=== PATIENT | male | born 1985 | race Caucasian/White ===

== ENCOUNTER 2020-04-22 11:24 | Outpatient (CLI) | payer OTHER, SELFPAY ==
--- NOTE | ~2020-04-22 | XR_ITS ---
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 T here is mild periarticular spurring of the patella consistent with osteoarthritis. No fracture or dislocation or joint effusion is evident. No periosteal reaction or bone destruction. No radiopaque intra-articular loose body or chondrocalcinosis. IMPRESSION: No fracture or dislocation or joint effusion Reviewed, dictated and finalized at location B. 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
== END 2020-04-22 11:25 | disposition home or self-care (01) ==
LOC: CHSIMG 11:26
PROVIDERS: PCP Nurse Practitioner Family; Visit Provider Nurse Practitioner Family
DX: M25.562 Pain in left knee (principal)
CPT/HCPCS: 73562

== ENCOUNTER 2021-02-16 12:48 | Outpatient (CLI) | payer OTHER, SELFPAY ==
[2021-02-16 14:07] LABS: SARS-CoV-2 RNA PCR Positive (Negative)
== END 2021-02-16 12:49 | disposition home or self-care (01) ==
PROVIDERS: PCP Nurse Practitioner Family; Visit Provider Nurse Practitioner Family
DX: U07.1 COVID-19 (principal)
CPT/HCPCS: C9803; U0003; U0005

== ENCOUNTER 2021-02-17 09:17 | Outpatient (CLI) | payer OTHER, SELFPAY ==
[2021-02-17 09:55] VITALS: BP 154/86; PULSE 97; RESP 16; TEMP 37.7; O2SAT 93
[2021-02-17] MEDS: diphenhydrAMINE HCl CAP 25 MG CAPSULE PO (10:02)
[2021-02-17] MEDS: FAMOTIDINE 20 MG TABLET PO (10:02)
[2021-02-17] MEDS: ACETAMINOPHEN 325 MG TABLET 650 MG PO (10:03)
--- NOTE | 2021-02-17 11:50 | PC.NURSE ---
Patient here to receive monoclonal antibody infusion. Patient tolerated well. Shows no signs/symptoms of adverse reactions. IV site removed, tip intact. Dressing applied to site. Patient denies any questions at discharge. Accompanied to front door by this nurse, patient left ambulatory.
== END 2021-02-17 09:18 | disposition home or self-care (01) ==
LOC: CHSTREATRM 09:19
PROVIDERS: PCP Nurse Practitioner Family; Visit Provider Nurse Practitioner Family
DX: Z23 Encounter for immunization (principal); U07.1 COVID-19
CPT/HCPCS: 96365; A9270; M0245; Q0245

== ENCOUNTER 2021-02-23 11:59 | Outpatient (CLI) | payer OTHER, SELFPAY ==
--- NOTE | ~2021-02-23 | XR_ITS ---
EXAMINATION: XR chest 2V 02/23/2021 12:28 INDICATION: Covid19. Shortness of breath. PROCEDURE: 2 view chest COMPARISON: 02/12/2015 FINDINGS: The lungs are clear. The cardiomediastinal silhouette is within normal limits. There are no pleural effusions. There is no pneumothorax suspected. IMPRESSION: 1: NO ACUTE CARDIOPULMONARY DISEASE. Reviewed, dictated and finalized at location A. CHECK ATTENDANT
== END 2021-02-23 12:00 | disposition home or self-care (01) ==
LOC: CHSIMG 12:01
PROVIDERS: PCP Nurse Practitioner Family; Visit Provider Nurse Practitioner Family
DX: U07.1 COVID-19 (principal)
CPT/HCPCS: 71046

== ENCOUNTER 2021-05-24 13:00 | Emergency (ER) | payer OTHER, SELFPAY ==
--- NOTE | ~2021-05-24 | XR_ITS ---
XR knee LT 3V 05/24/2021 13:42 Indication: Left knee pain after fall Procedure: 5 views left knee Comparison: Comparison to multiple prior studies sequentially, with oldest reviewed study dated 10/30. Findings: No acute fracture, subluxation or dislocation. There is an unfused tibial apophysis. Mild p atellofemoral compartment osteoarthritis. No joint effusion. No foreign bodies. Impression: 1: No acute fracture. Reviewed, dictated and finalized at location A. COLLECTOR Impression: 1: No acute fracture.
[2021-05-24 13:00] VITALS: BP 107/91; PULSE 106; RESP 16; TEMP 36.8; O2SAT 95
--- NOTE | 2021-05-24 13:12 | ED.LOWEXIN ---
HPI - Extremity Injury (Lower) General Chief Complaint: Extremity Injury, Lower Stated Complaint: fell down stairs, L knee pain Source: patient and RN notes reviewed Mode of arrival: ambulatory Limitations: no limitations History of Present Illness HPI Narrative: Patient was cleaning up the stairs when he slipped and his knee ended up hitting the ground and his foot was bad back with an inversion injury. complaint: knee injury Onset (ago): hour(s) (2) Injury: Left: knee Type of Injury: inversion Place: home Severity: moderate Relieving factors: nothing Exacerbating factors: weight bearing and movement Context: fall Associated symptoms: ambulatory Other symptoms: none Related Data Allergies Allergy/AdvReac Type Severity Reaction Status Date / Time No Known Allergies Allergy Verified 05/24/21 13:23 Review of Systems Review of Systems: All systems reviewed & are unremarkable except as noted in HPI and below PMFSH Past Medical History Medical History Cigarette smoker (03/08/16) HTN (hypertension) (06/28/17) SARS-CoV-2 positive Surgical History Surgical History H/O left knee surgery Social History Social History Smoking packs per day: 0.75 Smoking cigarettes per day: 15.0 Years smoked: 15 Smoking pack-years: 11.25 Smoking status: Current every day smoker Alcohol intake: current Alcohol use details: social Substance use: never Substance use type: does not use Additional living arrangements comments: 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 Exam Const: General: healthy appearing, no acute distress and alert Nutritional Appearance: well nourished and obese centrally obese Orientation/consciousness: patient oriented x3 HENMT: Head: normal to inspection Ears: external ears normal Eyes: Conjunctivae: conjunctivae normal Pupils: Equal, round and reactive pupils present EOM: EOMs intact bilaterally Neck: Neck: normal visual inspection Resp: Effort & Inspection: normal respiratory effort Auscultation: clear to auscultation bilaterally Cardio: Rate: regular rate Rhythm: regular rhythm GI: GI Palp: Yes Soft to palpation and No Tenderness to palpation present (GI) Auscultation: normal bowel sounds Back/Spine/Pelvis: Cervical Spine: cervical ROM normal Thoracic/Lumbar Spine: thoraco-lumbar ROM normal Skin: General skin exam: normal color Rashes: no rashes Neuro: General: patient oriented x3, moves all extremities, no focal motor deficits and CN's II-XI intact bilaterally Speech: normal speech Extrem: General: normal exam except as noted and no clubbing, cyanosis or edema Left lower extremity: knee Details: tenderness Location: of the patella Details: superiorly, of the medial joint line and of the lateral joint line, normal ROM and knee ligament exam normal Details: anterior drawer test normal, valgus stress test normal, varus stress test normal and Jacinta's test normal Psych: Appearance: grossly normal and well kempt Mental Status: mental status grossly normal Affect: normal affect Attitude: cooperative Thought content: Yes Normal thought content present Course Vital Signs Vital signs: Vital Signs Temperature 36.8 C 05/24/21 13:00 Pulse Rate 106 H 05/24/21 13:00 Respiratory Rate 16 05/24/21 13:00 Blood Pressure 107/91 H 05/24/21 13:00 Pulse Oximetry 95 05/24/21 13:00 Temperature 36.8 C 05/24/21 13:00 Pulse Rate 106 H 05/24/21 14:29 Respiratory Rate 16 05/24/21 14:29 Blood Pressure 141/90 H 05/24/21 14:29 Pulse Oximetry 95 05/24/21 14:29 MDM - Extremity Injury (Lower) Imaging Data Radiologist's impression: No acute fracture Discharge Plan Discharge Clinical Impression: Knee strain Qualifiers: Encounter type: initial encounter Laterality: l
[2021-05-24] MEDS: KETOROLAC (*BKC) 60 MG/2 ML VIAL IM (14:03)
--- NOTE | 2021-05-24 14:27 | PC.NURSE ---
RN applied knee imobilizer per ERP. Unable to strap the top two straps. ERP made aware used niurka wrap to help on knee imobilizer in place. PT tolerated well. PT verbalized understanding of knee imobilizer. PMI intact distally. Pt educated if and pain, numbness, or tingling distally to remove knee imobilizer and reapply looser. Pt has no rash, swelling, itching or hematoma noted on IM site.
[2021-05-24 14:29] VITALS: BP 141/90; PULSE 106; RESP 16; O2SAT 95
== END 2021-05-24 14:30 | disposition home or self-care (01) ==
PROVIDERS: Emergency Provider Emergency Medicine; PCP Nurse Practitioner Family
DX: S86.912A Strain of unspecified muscle(s) and tendon(s) at lower leg level, left leg, initial encounter (principal); W22.8XXA Striking against or struck by other objects, initial encounter
CPT/HCPCS: 73562; 96372; 99283; J1885; L1830

== ENCOUNTER 2021-05-28 14:28 | Outpatient (CLI) | payer OTHER, SELFPAY ==
--- NOTE | ~2021-05-28 | XR_ITS ---
XR foot LT min 3V DATE: 05/28/2021 15:30 INDICATION: Left foot pain following fall 4 days ago TECHNIQUE: 4 views COMPARISON: 05/16/2013 left foot MR examination 04/28/2013 left foot FINDINGS: No fracture, dislocation, periosteal reaction or bone destruction is detected. Joint spaces are preserved. Mild distal Achilles tendon calcification. IMPRESSION: Mild distal Achilles tendon calcification No fracture or dislocation Reviewed, dictated and finalized at location A. 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
== END 2021-05-28 14:29 | disposition home or self-care (01) ==
LOC: CHSIMG 14:30
PROVIDERS: PCP Nurse Practitioner Family; Visit Provider Nurse Practitioner Family
DX: M79.672 Pain in left foot (principal)
CPT/HCPCS: 73630

== ENCOUNTER 2021-10-02 11:07 | Outpatient (CLI) | payer OTHER, SELFPAY ==
[2021-10-02 12:00] LABS: SARS-CoV-2 RNA PCR Negative (Negative)
== END 2021-10-02 11:08 | disposition home or self-care (01) ==
PROVIDERS: PCP Nurse Practitioner Family; Visit Provider Nurse Practitioner Family
DX: R09.81 Nasal congestion (principal)
CPT/HCPCS: C9803; U0003; U0005

== ENCOUNTER 2023-04-05 16:57 | Outpatient (RCR) | payer OTHER, SELFPAY ==
--- NOTE | 2023-04-07 07:19 | OPREHPOC ---
Outpatient Therapy Plan of Care This is a Multidisciplinary Plan of Care that may contain components documented by all disciplines (PT, OT, and ST.) PT Problem 1 PT Problem #1 Knowledge Deficit PT Goal 1 Goal Patient to demonstrate independence with HEP Target Visit 5 PT Problem 2 PT Problem #2 Impaired Flexibility PT Goal 1 Goal Patient to display 20 deg of B HS flexibility to improve ability to stand for house hold tasks Target Visit 10 PT Problem 3 PT Problem #3 Pain PT Goal 1 Goal 1. Patient to report highest pain at 2/10 2. Patient to report ability to sleep with no disturbance due to low back pain Target Visit 10 PT Problem 4 PT Problem #4 Impaired Strength PT Goal 1 Goal 1. Patient to demonstrate 5/5 R LE strength to return to house hold tasks at PLOF 2. Patient to demonstrate 4+/5 core strength to return to lifting without increase in pain Target Visit 10 PT Problem 5 PT Problem #5 Impaired Functional Mobil PT Goal 1 Goal 1. Patient to improve Back Index by 20% 2. Patient to report ability to stand for >30 minutes without radiating pain to R LE Target Visit 10
--- NOTE | 2023-04-07 07:19 | PTOPEVAL1 ---
Assessment and note entered by Farzana Douglas DPT Evaluation Information Assessment Status Evaluation Diagnosis R sided low back pain Onset 03/30/23 Subjective Information Patient reports he has had low back pain that radiates to the R LE. He reports pain has been occuring for about a year with it worsening over the last few months. He reports pain is worse with laying down, standing in one spot, and bumping leg on something. He reports R LE feels like it is asleep. 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 No imaging done recently. No follow up with MD scheduled. Reported Pain Level Pain Score 3,2: Self Report Assessment PT Clinical Summary Mr. Gutierrez is a 38 year old female who presents to PT with low back pain with radiating pain to the R LE. Patient demonstrates decreased R hip strength, decreased core strength and decreased LE flexibility impairing his ability to sleep, standing to complete house hold tasks and sitting for prolonged periods. He would benefit from skilled PT to address impairments and return to PLOF. Plan of Care Interventions Electrical Stimulation,Gait Training,Hot Pack/Cold Pack,Manual Therapy,Mechanical Traction,Neuro Re- education,Patient/Caregiver Educati,Therapeutic Activities,Therapeutic Exercise PT Services Indicated Yes Treatment Frequency and 2x weekly for 10 visits Duration These treatments will address the objective and functional deficits as defined above. The patient will be advanced safely and appropriately in order for the patient to progress towards his/her prior level of function. Additional exercises will be introduced and as well as a comprehensive home exercise program upon discharge, if needed, ?to ensure carryover of functional gains achieved in the clinic. This treatment plan has been reviewed and agreement upon by the patient.
--- NOTE | 2023-04-07 07:21 | OPREHPOC ---
Outpatient Therapy Plan of Care This is a Multidisciplinary Plan of Care that may contain components documented by all disciplines (PT, OT, and ST.) PT Problem 1 PT Problem #1 Knowledge Deficit PT Goal 1 Goal Patient to demonstrate independence with HEP Target Visit 5 PT Problem 2 PT Problem #2 Impaired Flexibility PT Goal 1 Goal Patient to display 20 deg of B HS flexibility to improve ability to stand for house hold tasks Target Visit 10 PT Problem 3 PT Problem #3 Pain PT Goal 1 Goal 1. Patient to report highest pain at 2/10 2. Patient to report ability to sleep with no disturbance due to low back pain Target Visit 10 PT Problem 4 PT Problem #4 Impaired Strength PT Goal 1 Goal 1. Patient to demonstrate 5/5 R LE strength to return to house hold tasks at PLOF 2. Patient to demonstrate 4+/5 core strength to return to lifting without increase in pain Target Visit 10 PT Problem 5 PT Problem #5 Impaired Functional Mobil PT Goal 1 Goal 1. Patient to improve LEFS by 10% 2. Patient to report ability to stand for >30 minutes without radiating pain to R LE Target Visit 10
--- NOTE | 2023-04-28 17:20 | PCPTNOTE ---
Patient cancelled due to having to stay at work late
--- NOTE | 2023-07-07 08:30 | PCPTNOTE ---
patient discharged due to non compliance with follow up appointments
== END 2023-04-25 20:00 | disposition home or self-care (01) ==
LOC: CHSPT 16:57
PROVIDERS: PCP Nurse Practitioner Family; Visit Provider Nurse Practitioner Family
DX: M54.31 Sciatica, right side (principal)
CPT/HCPCS: 97014; 97110; 97161; G0283

== ENCOUNTER 2023-09-29 07:29 | Outpatient (CLI) | payer OTHER, SELFPAY ==
[2023-09-29 07:58] LABS: Basophils Absolute Auto 0.03 K/mm3 (0.00-0.10); Basophils Percent Auto 0.4 % (0.0-1.0); Eosinophils Absolute Auto 0.11 K/mm3 (0.02-0.50); Eosinophils Percent Auto 1.6 % (1.0-6.0); Hematocrit 45.6 % (40.0-54.0); Hemoglobin 14.4 g/dL (14.0-18.0); Immature Granulocyte Absolute 0.01 K/mm3 (0.00-0.00); Immature Granulocyte Percent A 0.1 % (0.0-0.0); Lymphocytes Absolute Auto 2.35 K/mm3 (1.10-4.50); Lymphocytes Percent Auto 34.7 % (18.0-42.0); Mean Corpuscular HGB Conc 31.6 g/dL (32-36); Mean Corpuscular Hemoglobin 27.4 pg (27.0-31.0); Mean Corpuscular Volume 86.9 fL (78.0-102.0); Mean Platelet Volume 11.6 fl (8.7-11.0); Monocytes Absolute Auto 0.37 K/mm3 (0.10-0.90); Monocytes Percent Auto 5.5 % (2.0-11.0); Neutrophils Percent Auto 57.7 % (50.0-70.0); Platelet Count Result 206 K/mm3 (150-420); Red Blood Count 5.25 M/mm3 (4.70-6.10); White Blood Count 6.8 K/mm3 (4.8-10.8)
[2023-09-29 08:07] LABS: Hemoglobin A1C 6.2 % (<5.7)
[2023-09-29 08:47] LABS: Alanine Aminotransferase 54 U/L (16-63); Albumin Level 3.4 g/dL (3.4-5.0); Alkaline Phosphatase 89 U/L (46-116); Anion Gap 7 mmol/L (4-12); Aspartate Amino Transferase 16 U/L (15-37); Bilirubin,Total 0.5 mg/dL (0.00-1.00); Blood Urea Nitrogen 15 mg/dL (7-18); Calcium 8.6 mg/dL (8.5-10.1); Carbon Dioxide 33 mmol/L (21-32); Chloride 102 mmol/L (98-108); Cholesterol 177 mg/dL (0-200); Estimated Glomerular Filt Rate > 60; Glucose 138 mg/dL (70-99); HDL Direct 38 mg/dL (40-60); LDL Cholesterol Calculated 114 mg/dL (<130); Osmolality Calculated 296 mOsm/kg (285-295); Potassium 3.7 mmol/L (3.5-5.1); Sodium 142 mmol/L (136-145); Total Protein 6.5 g/dL (6.4-8.2); Triglycerides 123 mg/dL (0-150)
[2023-09-29 08:54] LABS: Thyroid Stimulating Hormone Reflex 1.68 u/IU/mL (0.36-3.74)
[2023-10-01 02:18] LABS: Vitamin D 25 Hydroxy 30 ng/mL (30-100)
== END 2023-09-29 07:30 | disposition home or self-care (01) ==
LOC: CHSLAB 07:30
PROVIDERS: PCP Nurse Practitioner Family; Visit Provider Nurse Practitioner Family
DX: Z00.00 Encounter for general adult medical examination without abnormal findings (principal)
CPT/HCPCS: 36415; 80053; 80061; 82306; 83036; 84443; 85025

== ENCOUNTER 2024-01-05 13:46 | Outpatient (CLI) | payer OTHER, SELFPAY ==
[2024-01-05 14:05] LABS: Hematocrit 45.3 % (40.0-54.0); Hemoglobin 14.8 g/dL (14.0-18.0); Mean Corpuscular HGB Conc 32.7 g/dL (32-36); Mean Corpuscular Hemoglobin 27.6 pg (27.0-31.0); Mean Corpuscular Volume 84.4 fL (78.0-102.0); Mean Platelet Volume 11.6 fl (8.7-11.0); Platelet Count Result 246 K/mm3 (150-420); Red Blood Count 5.37 M/mm3 (4.70-6.10); Red Cell Distribution Width 14.8 % (11.6-14.4)
[2024-01-05 14:17] LABS: INR 0.9; Partial Thromboplastin Time 28.2 Sec (23.9-30.70); Prothrombin Time 10.1 Seconds (9.50-12.1)
[2024-01-05 14:23] LABS: Hemoglobin A1C 5.9 % (<5.7)
[2024-01-05 14:48] LABS: Alanine Aminotransferase 59 U/L (16-63); Albumin Level 3.6 g/dL (3.4-5.0); Alkaline Phosphatase 93 U/L (46-116); Anion Gap 9 mmol/L (4-12); Aspartate Amino Transferase 17 U/L (15-37); Bilirubin,Total 0.5 mg/dL (0.00-1.00); Blood Urea Nitrogen 14 mg/dL (7-18); Calcium 8.8 mg/dL (8.5-10.1); Carbon Dioxide 31 mmol/L (21-32); Chloride 100 mmol/L (98-108); Estimated Glomerular Filt Rate 60; Glucose 99 mg/dL (70-99); Osmolality Calculated 290 mOsm/kg (285-295); Potassium 3.9 mmol/L (3.5-5.1); Sodium 140 mmol/L (136-145); Total Protein 6.5 g/dL (6.4-8.2)
[2024-01-05 17:10] LABS: Thyroid Stimulating Hormone Reflex 2.49 u/IU/mL (0.36-3.74)
== END 2024-01-05 13:47 | disposition home or self-care (01) ==
PROVIDERS: PCP Nurse Practitioner Family; Visit Provider Surgery
DX: R94.6 Abnormal results of thyroid function studies (principal); Z13.29 Encounter for screening for other suspected endocrine disorder; R73.03 Prediabetes; E66.01 Morbid (severe) obesity due to excess calories
CPT/HCPCS: 36415; 80053; 83036; 84443; 85027; 85610; 85730; 86850; 86900; 86901